=== PATIENT | female | born 1990 | race Two or more races ===

== ENCOUNTER 2016-07-27 12:33 | Emergency (ER) | payer OTHER ==
[~2016-07-27] VITALS: Ht 157.5 cm; Wt 59.0 kg
[2016-07-27] MEDS ORDERED: LORAZEPAM 1 MG TABLET ONE ×2 (12:46→15:14)
[2016-07-27] MEDS ORDERED: LORAZEPAM 1 MG TABLET PO ONE ×2 (13:00→15:00)
[2016-07-27] MEDS ORDERED: PHENYTOIN EXTENDED RELEASE 100 MG CAPSULE PO ONE ×6 (14:19→17:00)
[2016-07-27 17:02] VITALS: BP 120/75
== END 2016-07-27 17:04 | disposition home or self-care (01) ==
LOC: ER 12:34
DX: G40.909 Epilepsy, unspecified, not intractable, without status epilepticus (principal)
CPT/HCPCS: 36415; 80185; 99284; A4606; Z7610

== ENCOUNTER 2016-07-29 11:44 | Inpatient (IN) | payer OTHER ==
[~2016-07-29] VITALS: Ht 157.5 cm; Wt 63.5 kg
[2016-07-29] MEDS ORDERED: LORAZEPAM INJ 2 MG/ML VIAL IV ONE (12:00)
[2016-07-29] MEDS ORDERED: LORAZEPAM INJ 2 MG/ML VIAL ONE (12:09)
[2016-07-29 12:17] LABS: BASOPHILS # (AUTO) 0.1 /CMM (0.0-0.2); BASOPHILS % (AUTO) 1.5 % (0.0-2.0); DIFF TOTAL % 100 %; EOSINOPHILS # (AUTO) 0.1 /CMM (0.0-0.7); EOSINOPHILS % (AUTO) 1.7 % (0.0-6.0); HEMATOCRIT 35 % (33-45); HEMOGLOBIN 11.9 g/dL (11.5-14.8); LYMPHOCYTES # (AUTO) 2.7 /CMM (0.8-4.8); LYMPHOCYTES % (AUTO) 38.9 % (20.0-44.0); MEAN CORPUSCULAR HEMOGLOBIN 31 PG (26.0-33.0); MEAN CORPUSCULAR HGB CONC 35 g/dl (31.0-36.0); MEAN CORPUSCULAR VOLUME 88 fL (82-100); MONOCYTES # (AUTO) 0.3 /CMM (0.1-1.30); MONOCYTES % (AUTO) 4.8 % (2.0-12.0); NEUTROPHILS # (AUTO) 3.7 /CMM (1.8-8.9); NEUTROPHILS % (AUTO) 53.1 % (43.0-81.0); PLATELET COUNT (AUTO) 607 /CMM (150-450); RED BLOOD CELL COUNT(AUTO) 3.92 MIL/uL (4.0-5.2); WHITE BLOOD COUNT (AUTO) 6.9 K/uL (4.3-11.0)
[2016-07-29 12:23] LABS: CALCIUM, SERUM 8.2 mg/dL (8.5-10.1); CREATININE 0.7 mg/dL (0.6-1.3); POTASSIUM 3.9 mmol/L (3.5-5.1)
[2016-07-29] MEDS ORDERED: LEVE500T9 PO (12:47)
[2016-07-29] MEDS ORDERED: ALBU1.257 NEB (12:47)
[2016-07-29] MEDS ORDERED: ALBU8.5H2 IH (12:47)
[2016-07-29] MEDS ORDERED: clonazePAM 1 MG TABLET PO ONE (13:00)
[2016-07-29] MEDS ORDERED: clonazePAM 1 MG TABLET ONE (13:03)
[2016-07-29 13:05] LABS: ADD UA MICROSCOPIC NO; KETONES,URINE Negative (NEGATIVE); LEUKOCYTE ESTERASE ,URINE Negative (NEGATIVE)
[2016-07-29 13:15] LABS: CANNABINOID, URINE NEGATIVE (NEGATIVE); PHENCYCLIDINE SCREEN,URINE NEGATIVE (NEGATIVE)
[2016-07-29] MEDS ORDERED: PROPOFOL 20 ML IV ONE (13:29)
[2016-07-29] MEDS ORDERED: KETAMINE HCL (500MG/10ML) 50 MG/ML VIAL IV ONE (13:30)
[2016-07-29] MEDS ORDERED: PROPOFOL 200 MG/20 ML VIAL IV ONE (13:30)
[2016-07-29] MEDS ORDERED: KETAMINE HCL (500MG/10ML) 50 MG/ML VIAL ONE (13:31)
[2016-07-29] MEDS ORDERED: IV NS 0.9% 500 ML IV ONE (13:36)
[2016-07-29] MEDS ORDERED: IV SET PRIMARY 1 EA INFUS.SET MC ONE (13:36)
[2016-07-29] MEDS ORDERED: ACETAMINOPHEN 325 MG TABLET PO PRN (15:30)
[2016-07-29] MEDS ORDERED: MAGNESIUM HYDROXIDE 30 ML UDC PO PRN (15:30)
[2016-07-29] MEDS ORDERED: LORAZEPAM INJ 2 MG/ML VIAL IV PRN (15:30)
[2016-07-29] MEDS ORDERED: ALBUTEROL SULFATE 8 GM HFA.AER.AD IH PRN (15:30)
[2016-07-29] MEDS ORDERED: MAG HYDROX/AL HYDROX/SIMETH 30 ML UDC PO PRN (15:30)
[2016-07-29] MEDS ORDERED: Z GUARD REMEDY 2 OZ OINT TP PRN (15:30)
[2016-07-29] MEDS ORDERED: ONDANSETRON HCL/PF 4 MG/2 ML VIAL IVP PRN (15:30)
[2016-07-29 20:00] VITALS: BP 99/66
[2016-07-29] MEDS: PHENYTOIN EXTENDED RELEASE 100 MG CAPSULE PO SCH (20:06)
[2016-07-29] MEDS: LEVETIRACETAM (250 MG) 250 MG TABLET PO SCH (20:07)
[2016-07-30] VITALS (7 sets, daily range): BP systolic 93–114; BP diastolic 58–75
[2016-07-30] MEDS: HYDROCODONE/APAP 5/325MG 1 EACH TABLET PO PRN ×4 (02:18→22:59)
[2016-07-30] MEDS: PHENYTOIN EXTENDED RELEASE 100 MG CAPSULE PO SCH ×3 (04:35→21:22)
[2016-07-30 07:24] LABS: BASOPHILS # (AUTO) 0.1 /CMM (0.0-0.2); BASOPHILS % (AUTO) 1.9 % (0.0-2.0); DIFF TOTAL % 100 %; EOSINOPHILS # (AUTO) 0.1 /CMM (0.0-0.7); EOSINOPHILS % (AUTO) 2.5 % (0.0-6.0); HEMATOCRIT 40 % (33-45); HEMOGLOBIN 13.1 g/dL (11.5-14.8); LYMPHOCYTES # (AUTO) 2.5 /CMM (0.8-4.8); LYMPHOCYTES % (AUTO) 45.1 % (20.0-44.0); MEAN CORPUSCULAR HEMOGLOBIN 29 PG (26.0-33.0); MEAN CORPUSCULAR HGB CONC 33 g/dl (31.0-36.0); MEAN CORPUSCULAR VOLUME 89 fL (82-100); MONOCYTES # (AUTO) 0.2 /CMM (0.1-1.30); MONOCYTES % (AUTO) 4.3 % (2.0-12.0); NEUTROPHILS # (AUTO) 2.6 /CMM (1.8-8.9); NEUTROPHILS % (AUTO) 46.2 % (43.0-81.0); PLATELET COUNT (AUTO) 608 /CMM (150-450); RED BLOOD CELL COUNT(AUTO) 4.47 MIL/uL (4.0-5.2); WHITE BLOOD COUNT (AUTO) 5.6 K/uL (4.3-11.0)
[2016-07-30 07:46] LABS: CREATININE 0.8 mg/dL (0.6-1.3); PHOSPHORUS 4.3 mg/dL (2.5-4.9); POTASSIUM 4.5 mmol/L (3.5-5.1)
[2016-07-30 08:00] LABS: THYROID STIMULATING HORMONE 0.201 uIU/mL (0.358-3.74)
[2016-07-30] MEDS: LEVETIRACETAM (250 MG) 250 MG TABLET PO SCH (08:01)
[2016-07-30] MEDS: PANTOPRAZOLE 40 MG TABLET.DR PO SCH (08:01)
[2016-07-30 11:23] LABS: ALBUMIN 3.7 g/dL (3.4-5.0); BILIRUBIN,DIRECT 0.1 mg/dL (0.0-0.2); BILIRUBIN,TOTAL 0.2 mg/dL (0.2-1.0); INDIRECT BILIRUBIN 0.1 mg/dL (0.0-1.1); TOTAL PROTEIN, SERUM 7.4 g/dL (6.4-8.2)
[2016-07-30] MEDS ORDERED: PHENOBARBITAL SODIUM 1,000 MG in IV NS 0.9% 80 ML IV ONE (12:00)
[2016-07-30] MEDS ORDERED: IV SET PRIMARY PUMP SET 1 EA INFUS.SET MC ONE (13:00)
[2016-07-30] MEDS ORDERED: PHENOBARBITAL SODIUM 1,000 MG in IV NS 0.9% 100 ML IV ONE (13:00)
[2016-07-30 13:59] LABS: THYROID STIMULATING HORMONE 0.204 uIU/mL (0.358-3.74)
[2016-07-30] MEDS: clonazePAM 0.5 MG TABLET PO SCH (17:57)
[2016-07-30] MEDS: PHENOBARBITAL 30 MG TABLET PO SCH (17:57)
[2016-07-30] MEDS: ZOLPIDEM TARTRATE 5 MG TABLET PO PRN (23:32)
[2016-07-31] VITALS (7 sets, daily range): BP systolic 91–112; BP diastolic 58–70
[2016-07-31] MEDS: PHENYTOIN EXTENDED RELEASE 100 MG CAPSULE PO SCH ×3 (04:46→23:31)
[2016-07-31 07:25] LABS: BASOPHILS # (AUTO) 0.1 /CMM (0.0-0.2); BASOPHILS % (AUTO) 2.2 % (0.0-2.0); DIFF TOTAL % 100 %; EOSINOPHILS # (AUTO) 0.3 /CMM (0.0-0.7); EOSINOPHILS % (AUTO) 4.7 % (0.0-6.0); HEMATOCRIT 38 % (33-45); HEMOGLOBIN 12.5 g/dL (11.5-14.8); LYMPHOCYTES % (AUTO) 47.2 % (20.0-44.0); MEAN CORPUSCULAR HEMOGLOBIN 29 PG (26.0-33.0); MEAN CORPUSCULAR HGB CONC 33 g/dl (31.0-36.0); MEAN CORPUSCULAR VOLUME 89 fL (82-100); MONOCYTES # (AUTO) 0.3 /CMM (0.1-1.30); MONOCYTES % (AUTO) 5.3 % (2.0-12.0); NEUTROPHILS # (AUTO) 2.6 /CMM (1.8-8.9); NEUTROPHILS % (AUTO) 40.6 % (43.0-81.0); PLATELET COUNT (AUTO) 542 /CMM (150-450); RED BLOOD CELL COUNT(AUTO) 4.26 MIL/uL (4.0-5.2); WHITE BLOOD COUNT (AUTO) 6.3 K/uL (4.3-11.0)
[2016-07-31 07:43] LABS: CALCIUM, SERUM 8.2 mg/dL (8.5-10.1); CREATININE 0.7 mg/dL (0.6-1.3); PHOSPHORUS 4.3 mg/dL (2.5-4.9); POTASSIUM 4.5 mmol/L (3.5-5.1)
[2016-07-31] MEDS: PANTOPRAZOLE 40 MG TABLET.DR PO SCH (08:35)
[2016-07-31] MEDS: PHENOBARBITAL 30 MG TABLET PO SCH ×2 (08:35→17:07)
[2016-07-31] MEDS: clonazePAM 0.5 MG TABLET PO SCH ×2 (08:35→17:07)
[2016-07-31] MEDS: HYDROCODONE/APAP 5/325MG 1 EACH TABLET PO PRN ×2 (08:36→18:40)
[2016-07-31] MEDS ORDERED: SECONDARY IV SET 1 EA INFUS.SET MC ONE (12:43)
[2016-07-31] MEDS ORDERED: IV SET PRIMARY PUMP SET 1 EA INFUS.SET MC ONE (12:43)
[2016-07-31] MEDS ORDERED: IV NS 0.9% 250 ML IV ONE (12:43)
[2016-07-31] MEDS: Magnesium 1GM/D5W 100ML PREMIX 100 ML IV SCH ×2 (12:57→14:17)
[2016-08-01] VITALS (9 sets, daily range): BP systolic 96–112; BP diastolic 50–74
[2016-08-01] MEDS: PHENYTOIN EXTENDED RELEASE 100 MG CAPSULE PO SCH (05:47)
[2016-08-01 06:03] LABS: CALCIUM, SERUM 8.4 mg/dL (8.5-10.1); CREATININE 0.7 mg/dL (0.6-1.3); POTASSIUM 5.3 mmol/L (3.5-5.1)
[2016-08-01] MEDS: PANTOPRAZOLE 40 MG TABLET.DR PO SCH (06:37)
[2016-08-01] MEDS: PHENOBARBITAL 30 MG TABLET PO SCH ×2 (08:09→16:23)
[2016-08-01] MEDS: clonazePAM 0.5 MG TABLET PO SCH ×2 (08:09→16:23)
[2016-08-01] MEDS: HYDROCODONE/APAP 5/325MG 1 EACH TABLET PO PRN ×3 (08:12→20:47)
[2016-08-01] MEDS: PHENYTOIN SODIUM IV 50 MG/ML VIAL IV SCH ×2 (12:04→20:18)
[2016-08-01] MEDS ORDERED: IV NS 0.9% 1,000 ML IV PRN (15:00)
[2016-08-01] MEDS ORDERED: IV NS 0.9% 1,000 ML BAG IV ONE (15:00)
[2016-08-01] MEDS: ZOLPIDEM TARTRATE 5 MG TABLET PO PRN (20:18)
[2016-08-02] VITALS: BP 103/69
[2016-08-02 04:00] VITALS: BP 103/52
[2016-08-02] MEDS: PHENYTOIN SODIUM IV 50 MG/ML VIAL IV SCH ×2 (05:01→12:26)
[2016-08-02 06:47] LABS: BASOPHILS # (AUTO) 0.1 /CMM (0.0-0.2); BASOPHILS % (AUTO) 0.9 % (0.0-2.0); DIFF TOTAL % 100 %; EOSINOPHILS # (AUTO) 0.5 /CMM (0.0-0.7); EOSINOPHILS % (AUTO) 6.2 % (0.0-6.0); HEMATOCRIT 36 % (33-45); HEMOGLOBIN 11.5 g/dL (11.5-14.8); MEAN CORPUSCULAR HEMOGLOBIN 29 PG (26.0-33.0); MEAN CORPUSCULAR HGB CONC 32 g/dl (31.0-36.0); MEAN CORPUSCULAR VOLUME 90 fL (82-100); MONOCYTES # (AUTO) 0.6 /CMM (0.1-1.30); MONOCYTES % (AUTO) 7.2 % (2.0-12.0); NEUTROPHILS # (AUTO) 4.2 /CMM (1.8-8.9); NEUTROPHILS % (AUTO) 49.7 % (43.0-81.0); PLATELET COUNT (AUTO) 531 /CMM (150-450); RED BLOOD CELL COUNT(AUTO) 3.95 MIL/uL (4.0-5.2); WHITE BLOOD COUNT (AUTO) 8.4 K/uL (4.3-11.0)
[2016-08-02 07:07] LABS: CALCIUM, SERUM 7.9 mg/dL (8.5-10.1); CREATININE 0.8 mg/dL (0.6-1.3); PHOSPHORUS 4.1 mg/dL (2.5-4.9); POTASSIUM 4.3 mmol/L (3.5-5.1)
[2016-08-02 08:00] VITALS: BP_SYST 138; BP_SYST 96; BP_DIAS 59; BP_DIAS 62
[2016-08-02] MEDS: clonazePAM 0.5 MG TABLET PO SCH ×2 (09:24→16:56)
[2016-08-02] MEDS: PANTOPRAZOLE 40 MG TABLET.DR PO SCH (09:24)
[2016-08-02] MEDS: PHENOBARBITAL 30 MG TABLET PO SCH ×2 (09:24→16:56)
[2016-08-02] MEDS ORDERED: PHEN50VI4 PO (12:14)
[2016-08-02] MEDS ORDERED: Phenobarbital PO (12:14)
[2016-08-02] MEDS ORDERED: CLON0.5T4 PO (12:14)
[2016-08-02] MEDS ORDERED: ALBU18HF2 IH (12:14)
[2016-08-02] MEDS ORDERED: CHOL400T11 PO (12:18)
[2016-08-02] MEDS ORDERED: IV NS 0.9% 250 ML IV ONE (12:19)
[2016-08-02] MEDS ORDERED: SECONDARY IV SET 1 EA INFUS.SET MC ONE (12:19)
[2016-08-02] MEDS ORDERED: IV SET PRIMARY PUMP SET 1 EA INFUS.SET MC ONE (12:19)
[2016-08-02] MEDS: Magnesium 1GM/D5W 100ML PREMIX 100 ML IV SCH ×4 (12:26→18:09)
[2016-08-02 16:00] VITALS: BP 106/66
[2016-08-02] MEDS: HYDROCODONE/APAP 5/325MG 1 EACH TABLET PO PRN (18:09)
== END 2016-08-02 19:37 | DRG 53 ==
LOC: ER 11:46 → TELE1 13:36 → MEDSG1 08-02 11:23
PROVIDERS: ADMIT Internal Medicine; ATTEND Internal Medicine
DX: G40.909 Epilepsy, unspecified, not intractable, without status epilepticus (principal); J98.11 Atelectasis; J45.909 Unspecified asthma, uncomplicated; Z90.49 Acquired absence of other specified parts of digestive tract; Z76.5 Malingerer [conscious simulation]; R91.8 Other nonspecific abnormal finding of lung field
CPT/HCPCS: 36415; 70450-TC; 71020-TC; 71250-TC; 73020; 73030-TC; 80048-TC; 80061-TC; 80076-TC; 80184-TC; 80185-TC; 80305; 81000-TC; 82542; 83735-TC; 84100-TC; 84439-TC; 84443-TC; 84481; 84703-TC; 85025-TC; 87081-TC; 95819-TC; A4606; J1165; J2060; J2560; J2704; J3475; J3490; J7030; J7040; J7050; Z7610

== ENCOUNTER 2017-12-20 09:04 | Emergency (ER) | payer OTHER ==
[~2017-12-20] VITALS: Ht 162.6 cm; Wt 60.8 kg
[~2017-12-20 09:04] MED LIST: ALBU18HF2 IH; CHOL400T11 PO; CLON0.5T12 PO; PHEN50VI4 PO; Phenobarbital PO
[2017-12-20] MEDS ORDERED: CHLORDIAZEPOXIDE HCL 25 MG CAPSULE ONE (09:17)
--- NOTE | 2017-12-20 09:18 | NUR ---
PT. VERBALIZED UNDERSTANDING OF AFTERCARE INSTRUCTIONS.Patient discharged to custody of [employer] in stable condition. Written and verbal after care instructions given. Patient and [employer] verbalizes understanding of instruction.
[2017-12-20 09:19] VITALS: BP 124/79
[2017-12-20] MEDS ORDERED: CHLORDIAZEPOXIDE HCL 25 MG CAPSULE PO ONE (09:30)
== END 2017-12-20 09:19 | disposition home or self-care (01) ==
LOC: ER 09:08
DX: G40.909 Epilepsy, unspecified, not intractable, without status epilepticus (principal)
CPT/HCPCS: 99283; Z7610; A4606

== ENCOUNTER 2018-01-20 12:18 | Emergency (ER) | payer OTHER ==
[~2018-01-20] VITALS: Ht 162.6 cm; Wt 61.2 kg
--- NOTE | 2018-01-20 12:26 | NUR ---
PT BIB [facility] TO ER BED 10. HERE FOR MEDICAL CLERANCE. PER REPORT POSSIBLE HEROIN WIDRAWAL. HX OF SEIZURE. PLACED ON SEIZURE PRECAUTION. AWAITING MD SAMUELS.
--- NOTE | 2018-01-20 12:38 | NUR ---
DR AG AT BEDSIDE FOR EVAL.
[2018-01-20] MEDS ORDERED: IV NS 0.9% 1,000 ML BAG IV ONE (13:00)
--- NOTE | 2018-01-20 13:15 | NUR ---
OVEN TENDER AT BEDSIDE FOR BLOOD DRAW.
[2018-01-20 13:23] LABS: BASOPHILS # (AUTO) 0.2 /CMM (0.0-0.2); HEMATOCRIT 45 % (33-45); HEMOGLOBIN 14.3 g/dL (11.5-14.8); LYMPHOCYTES # (AUTO) 1.5 /CMM (0.8-4.8); LYMPHOCYTES % (AUTO) 19.7 % (20.0-44.0); MEAN CORPUSCULAR HEMOGLOBIN 27 PG (26.0-33.0); MEAN CORPUSCULAR HGB CONC 31 g/dl (31.0-36.0); MEAN CORPUSCULAR VOLUME 87 fL (82-100); MONOCYTES # (AUTO) 0.2 /CMM (0.1-1.30); MONOCYTES % (AUTO) 2.6 % (2.0-12.0); NEUTROPHILS # (AUTO) 5.8 /CMM (1.8-8.9); NEUTROPHILS % (AUTO) 74.7 % (43.0-81.0); PLATELET COUNT (AUTO) 650 /CMM (150-450); RDW COEFFICIENT OF VARIATION 14.4 (11.5-15.0); RED BLOOD CELL COUNT(AUTO) 5.25 MIL/uL (4.0-5.2); WHITE BLOOD COUNT (AUTO) 7.8 K/uL (4.3-11.0)
[2018-01-20 13:32] LABS: CALCIUM, SERUM 9.2 mg/dL (8.5-10.1); CREATININE 0.7 mg/dL (0.6-1.3)
[2018-01-20 13:38] LABS: ALBUMIN 3.9 g/dL (3.4-5.0); BILIRUBIN,DIRECT 0.1 mg/dL (0.0-0.2); BILIRUBIN,TOTAL 0.4 mg/dL (0.2-1.0); TOTAL PROTEIN, SERUM 8.3 g/dL (6.4-8.2)
[2018-01-20] MEDS ORDERED: PHENYTOIN EXTENDED RELEASE 100 MG CAPSULE PO ONE ×2 (14:24→14:30)
--- NOTE | 2018-01-20 15:11 | NUR ---
MEDICALLY CLEARED. D/C TO [facility] IN STABLE CONDITION. IV removed. Catheter intact and site benign. Pressure and 4x4 applied to site. No bleeding noted.
[2018-01-20 15:13] VITALS: BP 125/82
== END 2018-01-20 15:13 ==
LOC: ER 12:19
DX: R53.1 Weakness (principal); F11.10 Opioid abuse, uncomplicated
CPT/HCPCS: 36415; 80048; 80076; 80185; 84703; 85025; 99284; A4606; J7030; Z7610

== ENCOUNTER 2018-01-26 15:02 | Emergency (ER) | payer OTHER ==
[~2018-01-26] VITALS: Ht 162.6 cm; Wt 60.8 kg
[2018-01-26] MEDS ORDERED: MORPHINE SULFATE INJ 4 MG/ML DISP.SYRIN ONE (16:15)
[2018-01-26] MEDS ORDERED: MORPHINE SULFATE INJ 2 MG/ML DISP.SYRIN IM ONE (16:30)
--- NOTE | 2018-01-26 16:39 | NUR ---
REPEAT R SHOULDER XRAY DONE POST REDUCTION.
[2018-01-26] MEDS ORDERED: PHENYTOIN EXTENDED RELEASE 100 MG CAPSULE PO ONE ×2 (16:44→17:00)
--- NOTE | 2018-01-26 16:47 | NUR ---
[employer] TEST CASE DEVELOPER FOR CONSULT - TEST CASE DEVELOPER PATT LAYTON
--- NOTE | 2018-01-26 16:50 | NUR ---
r shoulder sling applied
--- NOTE | 2018-01-26 17:00 | NUR ---
PT. VERBALIZED UNDERSTANDING OF AFTERCARE INSTRUCTIONS.Patient discharged to custody of [facility] in stable condition. Written and verbal after care instructions given. Patient verbalizes understanding of instruction.
[2018-01-26 17:05] VITALS: BP 138/71
== END 2018-01-26 17:05 | disposition home or self-care (01) ==
LOC: ER 15:03
DX: G40.909 Epilepsy, unspecified, not intractable, without status epilepticus (principal); M24.411 Recurrent dislocation, right shoulder; Z79.01 Long term (current) use of anticoagulants; Z79.899 Other long term (current) drug therapy
CPT/HCPCS: 29105; 36415; 73020; 73030; 80185; 96372; 99285; A4606; J2270; Z7610

== ENCOUNTER 2018-11-12 22:29 | Emergency (ER) | payer SELFPAY ==
[~2018-11-12] VITALS: Ht 165.1 cm; Wt 59.0 kg
[2018-11-12 22:38] VITALS: BP 120/84
--- NOTE | 2018-11-12 23:04 | NUR ---
Patient does not wish to proceed with medical care recommended by Dr. CHAVIRA. Patient given information related to possible complications, up to and including , which could occur as a result of leaving the hospital at this time. Patient verbalizes understanding of risks involved due to leaving against medical advice. Patient has signed AMA form.
== END 2018-11-12 23:05 | disposition left against medical advice (07) ==
LOC: ER 22:43
DX: H00.034 Abscess of left upper eyelid (principal); N61.1 Abscess of the breast and nipple; G40.909 Epilepsy, unspecified, not intractable, without status epilepticus